=== PATIENT | female | born 1995 | race African-American/Black ===

== ENCOUNTER 2016-08-20 07:11 | Inpatient (IN) | payer MEDICAID, OTHER ==
[2016-08-20] VITALS (28 sets, daily range): BP systolic 97–128; BP diastolic 39–76; PULSE 78–93; RESP 6–18; TEMP 97.7–98.4
[~2016-08-20] VITALS: Ht 175.3 cm; Wt 104.8 kg
[2016-08-20] MEDS: LACTATED RINGER'S 1000 ML INJ 1,000 ML IV SCH ×2 (00:20→10:29)
[~2016-08-20 07:11] MED LIST: PRENTAB44
[2016-08-20] MEDS ORDERED: LACTATED RINGER'S 1000 ML INJ 1,000 ML IV PRN (07:48)
--- NOTE | 2016-08-20 07:48 | PD ---
HPI Chief Complaint loss of fluid Date Seen: Aug 20, 2016 Travel History International Travel<30 Days: No Contact w/Intl Traveler<30Days: No Known Affected Area: No History of Present Illness HPI Ms. Moore is a 21 yo F at 39 6/7 weeks (WILBERT 08/21/2016) who presents with complaint of loss of vaginal fluid suspicious for ROM. Patient states that she felt a large volume of clear fluid on her underwear and gown at ~0530 this morning so sought evaluation. Patient reports that since this time she has had intermittent tightening lower abdomen and constant back pain. Patient reports slight dysuria, and states that she had history of UTI earlier this which was treated. Patient otherwise denies symptoms; no chest pain, shortness of breath, calf pain, or headaches reported. No decreased movement reported. No vaginal bleeding reported. No US complications reported. Patient reports no complications; she is reportedly GBS negative. Patient receives care with Beverley Gant. Para: 0 : 1 History Past Medical History Medical History: Denies Significant Hx Obstetric History Obstetric History G1 Past Surgical History Surgical History: No Previous Surgery Family History Narrative Family History Father- HTN Social History Alcohol Use: No Tobacco Use: No Substance Abuse: No Allergies-Medications (Allergen,Severity, Reaction): Coded Allergies: No Known Allergies (Unverified , 08/16/16) Home Meds Reported Medications Multivit-Min W/Fe-FA ( and Iron)1 Tab Tab 06/13/16 Review of Systems General / Constitutional: No: Fever, Chills Cardiovascular: No: Chest Pain or Discomfort Respiratory: No: Short of Breath Gastrointestinal: No: Nausea, Vomiting Genitourinary: Dysuria ( ) Physical Exam BP 114/66 HR 83 RR 20 T 97.6 Narrative GENERAL: Well-nourished, well-developed patient. SKIN: Warm and dry. HEAD: Normocephalic and atraumatic. EYES: No scleral icterus. No injection or drainage. ENT: No nasal drainage noted. Mucous membranes pink. Airway patent. NECK: No lymphadenopathy or thyromegaly CARDIOVASCULAR: Regular rate and rhythm without murmurs; normal perfusion RESPIRATORY: CTAB, normal rate ABDOMEN/GI: Abdomen soft, non-tender, bowel sounds present, no rebound, no guarding Gravid EXTREMITIES: No cyanosis or edema. BACK: Nontender without obvious deformity. No CVA tenderness. NEUROLOGICAL: Awake and alert. Motor and sensory grossly within normal limits. Five out of 5 muscle strength in all muscle groups. Normal speech. GENITOURINARY: External Genitalia: intact and normal in appearance Cervix: Dilatation: 1-2 cm Effacement: 70% Station: -2 Presentation: V Membranes: ruptured (Amnisure) Uterine Contractions: irritability FHT's: Category: 1 -2 (<10 min periods of decreased variability) Baseline: 140 Reactive: Y Variability: Mod Decels: none Data Data Vital Signs Reviewed: Yes MDM Medical Record Reviewed: Yes Narrative Course / MDM 21 yo F at 39 6/7 weeks (WILBERT 08/21/2016) who presents with complaint of loss of vaginal fluid suspicious for ROM -ROM confirmed with Amnisure -Cervix 1-2/70%/-2 -Cat -1 rhythm with <10 min periods decreased variability -GBS- Plan -Will admit for labor -Will give Cytotec for cervical ripening -Will check UA -Will check CBC, blood typing -Epidural if desired -Will start IVF; place patient on clear fluids Cruz Walton MD R2 Aug 20, 2016 07:48
[2016-08-20] MEDS ORDERED: MINERAL OIL 10 ML VIAL TOPICAL PRN (08:00)
[2016-08-20] MEDS ORDERED: LIDOCAINE HCL 1% 50 ML VIAL INFIL PRN (08:00)
[2016-08-20] MEDS ORDERED: CITRIC ACID-SODIUM CITRATE LIQ 30 ML UDC PO SCH (08:00)
[2016-08-20] MEDS ORDERED: SODIUM CHLORID 0.9% 500 ML INJ 500 ML IV PRN (08:00)
[2016-08-20] MEDS ORDERED: OXYTOCIN 30 UNITS-500ML PREMIX 500 ML IV ONE (08:00)
[2016-08-20] MEDS ORDERED: LIDOCAINE HCL 1% 50 ML VIAL I-DERMAL PRN (08:00)
[2016-08-20] MEDS ORDERED: SODIUM CHLOR 0.9% 1000 ML INJ 1,000 ML IV PRN (08:08)
--- NOTE | 2016-08-20 08:23 | HHI.HP ---
History & Physical H&P OB ED Note (Detail) Patient Name: Olivia Moore Unit Number: [id number] Date of : 1995 Patient Status: Registered Emergency Room Attending Doctor: Raegan Diallo MD HPI HPI Chief Complaint loss of fluid Date Seen: Aug 20, 2016 Travel History International Travel<30 Days: No Contact w/Intl Traveler<30Days: No Known Affected Area: No History of Present Illness HPI Ms. Moore is a 21 yo F at 39 6/7 weeks (WILBERT 08/21/2016) who presents with complaint of loss of vaginal fluid suspicious for ROM. Patient states that she felt a large volume of clear fluid on her underwear and gown at ~0530 this morning so sought evaluation. Patient reports that since this time she has had intermittent tightening lower abdomen and constant back pain. Patient reports slight dysuria, and states that she had history of UTI earlier this which was treated. Patient otherwise denies symptoms; no chest pain, shortness of breath, calf pain, or headaches reported. No decreased movement reported. No vaginal bleeding reported. No US complications reported. Patient reports no complications; she is reportedly GBS negative. Patient receives care with Beverley Gant. Para: 0 : 1 History (Limited) History Past Medical History Medical History: Denies Significant Hx Obstetric History Obstetric History G1 Past Surgical History Surgical History: No Previous Surgery Family History Narrative Family History Father- HTN Social History Alcohol Use: No Tobacco Use: No Substance Abuse: No Allergies-Medications Allergies-Medications (Allergen,Severity, Reaction): Coded Allergies: No Known Allergies (Unverified , 08/16/16) Home Meds Reported Medications Multivit-Min W/Fe-FA ( and Iron)1 Tab Tab 06/13/16 ROS Review of Systems General / Constitutional: No: Fever, Chills Cardiovascular: No: Chest Pain or Discomfort Respiratory: No: Short of Breath Gastrointestinal: No: Nausea, Vomiting Genitourinary: Dysuria ( ) Physical Exam Physical Exam BP 114/66 HR 83 RR 20 T 97.6 Narrative GENERAL: Well-nourished, well-developed patient. SKIN: Warm and dry. HEAD: Normocephalic and atraumatic. EYES: No scleral icterus. No injection or drainage. ENT: No nasal drainage noted. Mucous membranes pink. Airway patent. NECK: No lymphadenopathy or thyromegaly CARDIOVASCULAR: Regular rate and rhythm without murmurs; normal perfusion RESPIRATORY: CTAB, normal rate ABDOMEN/GI: Abdomen soft, non-tender, bowel sounds present, no rebound, no guarding Gravid EXTREMITIES: No cyanosis or edema. BACK: Nontender without obvious deformity. No CVA tenderness. NEUROLOGICAL: Awake and alert. Motor and sensory grossly within normal limits. Five out of 5 muscle strength in all muscle groups. Normal speech. GENITOURINARY: External Genitalia: intact and normal in appearance Cervix: Dilatation: 1-2 cm Effacement: 70% Station: -2 Presentation: V Membranes: ruptured (Amnisure) Uterine Contractions: irritability FHT's: Category: 1 -2 (<10 min periods of decreased variability) Baseline: 140 Reactive: Y Variability: Mod Decels: none Data Data Data Vital Signs Reviewed: Yes MDM MDM Medical Record Reviewed: Yes Narrative Course / MDM 21 yo F at 39 6/7 weeks (WILBERT 08/21/2016) who presents with complaint of loss of vaginal fluid suspicious for ROM -ROM confirmed with Amnisure -Cervix 1-2/70%/-2 -Cat -1 rhythm with <10 min periods decreased variability -GBS- Plan -Will admit for labor -Will give Cytotec for cervical ripening -Will check UA -Will check CBC, blood typing -Epidural if desired -Will start IVF; place patient on clear fluids Cruz Walton MD R2 Aug 20, 2016 08:23
[2016-08-20] MEDS ORDERED: MISOPROSTOL 25 MCG SUPP VAGINAL ONE (08:30)
[2016-08-20 09:21] LABS: AUTOMATED NEUTROPHIL # 5.1 TH/MM3 (1.8-7.7); BASOPHIL % 0.5 % (0.0-2.0); EOSINOPHIL # 0.1 TH/MM3 (0-0.4); EOSINOPHIL % 0.8 % (0.0-4.0); HEMATOCRIT 29.4 % (35.0-46.0); LYMPH % 28.2 % (9.0-44.0); LYMPHOCYTE # 2.3 TH/MM3 (1.0-4.8); MEAN CELL VOLUME 62.7 FL (80.0-100.0); MEAN CORPUSCULAR HEMOGLOBIN 20.6 PG (27.0-34.0); MEAN CORPUSCULAR HGB CONC 32.8 % (32.0-36.0); MONO % 9.2 % (0.0-8.0); NEUT % 61.3 % (16.0-70.0); PLATELET COUNT 332 TH/MM3 (150-450); RED BLOOD COUNT 4.69 MIL/MM3 (4.00-5.30); RED CELL DISTRIBUTION WIDTH 17.5 % (11.6-17.2); WHITE BLOOD COUNT 8.2 TH/MM3 (4.0-11.0)
[2016-08-20 09:22] LABS: HEMO FLAGS AUTO DIFF
[2016-08-20 09:25] LABS: BLOOD, URINE NEG (NEG); GLUCOSE,URINE NEG (NEG); KETONE, URINE NEG (NEG); NITRITE,URINE NEG (NEG); SQUAMOUS EPITHELIAL CELL URINE 12 /hpf (0-5); URINE COLOR YELLOW (YELLW/STRAW)
[2016-08-20 09:27] LABS: COMMENT (UR) CULT NOT INDICATED; CULTURE IF INDICATED CULT NOT INDICATED
[2016-08-20 09:50] LABS: SCAN/DIFF AUTO DIFF CONFIRMED
[2016-08-20] MEDS ORDERED: LACTATED RINGER'S 1000 ML INJ 1,000 ML IV ONE (15:15)
[2016-08-20] MEDS: MISOPROSTOL 25 MCG SUPP VAGINAL SCH ×2 (17:52→22:07)
--- NOTE | 2016-08-20 19:43 | PD.LABORPN ---
Subjective Subjective Pt feeling well resting comfortably with 2nd cytotec in place. Objective Vital Signs Vital Signs Date Time Temp Pulse Resp B/P Pulse Ox O2 Delivery O2 Flow Rate FiO2 08/20/16 18:45 16 08/20/16 18:30 97.9 89 16 125/68 08/20/16 17:59 16 08/20/16 17:30 16 08/20/16 17:19 82 117/69 08/20/16 17:00 16 08/20/16 16:30 98.4 16 08/20/16 16:10 89 97/67 08/20/16 16:00 16 08/20/16 15:30 16 08/20/16 15:08 83 119/74 08/20/16 15:00 18 08/20/16 14:30 97.7 08/20/16 14:30 16 08/20/16 13:56 16 08/20/16 13:33 6 08/20/16 13:33 16 08/20/16 13:31 83 113/58 08/20/16 13:02 16 08/20/16 12:48 18 08/20/16 12:48 89 114/61 08/20/16 12:00 16 08/20/16 12:00 97.9 08/20/16 12:00 83 113/56 Objective Pelvic Exam: Cervix:2/50/-3 FHT's: Moderate variability, no decelerations, + accels; CAT I Assessment/Plan Assessment and Plan 21y/o G1Po at 39w6d who was admitted this morning with PROM since 08/20/16 at 515am. -has received cytotec times 2, first dose at 1015a, last dose at 553p -plan for cytotec again in 4 hours if no improvement in Rashid score, consider oxytocin if Rashid score improved -epidural when desired -discussed epidural in depth and what to expect -anticipate Sharon Mcmillan MD Aug 20, 2016 19:43
[2016-08-21] VITALS (88 sets, daily range): BP systolic 74–157; BP diastolic 48–117; PULSE 70–121; RESP 16–20; TEMP 97.7–99.6
[2016-08-21] MEDS ORDERED: fentaNYL 2MCG-BUPIV 0.125% INJ 100 ML ONE (03:44)
[2016-08-21] MEDS ORDERED: LIDOCAINE HCL 1.5% PF SOLN 20 ML AMP ONE ×2 (05:04→07:11)
[2016-08-21] MEDS ORDERED: BUPIVACAINE HCL PF 0.25% 10 ML VIAL ONE (07:11)
[2016-08-21] MEDS ORDERED: fentaNYL 2MCG-BUPIV 0.125% 100 ML EPIDURAL SCH (07:45)
[2016-08-21] MEDS ORDERED: DO NOT ADMINISTER ANTICOAGULANTS PRN (07:45)
[2016-08-21] MEDS ORDERED: NO SYSTEM NARCOTICS PRN (07:45)
[2016-08-21] MEDS ORDERED: ePHEDrine/NS 25 MG/5 ML SYR IV PRN (07:45)
--- NOTE | 2016-08-21 08:48 | PD.LABORPN ---
Subjective Subjective Ms. Moore reports that she is doing well overall; she feels pain with contractions despite epidural placement (at ~0400 08/21). Patient has not had complications since Pitocin started (at ~0230 08/21). Patient does not report other complaints at this time. Objective Vital Signs Vital Signs Date Time Temp Pulse Resp B/P Pulse Ox O2 Delivery O2 Flow Rate FiO2 08/21/16 08:30 105 112/61 08/21/16 08:15 20 08/21/16 08:00 90 123/64 08/21/16 07:45 86 105/58 08/21/16 07:45 20 08/21/16 07:30 96 119/63 08/21/16 07:15 91 127/72 08/21/16 07:15 99.6 20 08/21/16 07:10 100 08/21/16 07:05 92 08/21/16 07:00 94 08/21/16 07:00 97 122/68 08/21/16 06:45 92 112/60 08/21/16 06:45 89 08/21/16 06:40 85 08/21/16 06:35 83 08/21/16 06:31 85 109/52 08/21/16 06:30 85 08/21/16 06:25 85 08/21/16 06:20 82 08/21/16 06:15 81 08/21/16 06:15 82 107/63 08/21/16 06:10 81 08/21/16 06:05 87 08/21/16 06:01 101 128/76 08/21/16 06:00 82 08/21/16 05:55 87 08/21/16 05:50 86 08/21/16 05:46 80 123/48 08/21/16 05:45 79 08/21/16 05:40 82 08/21/16 05:35 83 08/21/16 05:30 86 08/21/16 05:30 84 122/69 08/21/16 05:25 83 08/21/16 05:20 88 08/21/16 05:15 83 111/67 08/21/16 05:15 81 08/21/16 05:10 81 08/21/16 05:05 77 08/21/16 05:00 97.9 08/21/16 05:00 77 121/75 08/21/16 05:00 82 08/21/16 04:55 78 112/62 08/21/16 04:55 77 08/21/16 04:50 74 115/61 08/21/16 04:50 78 08/21/16 04:45 70 08/21/16 04:45 80 122/58 08/21/16 04:40 87 08/21/16 04:40 93 118/72 08/21/16 04:35 83 113/61 08/21/16 04:35 81 08/21/16 04:30 86 08/21/16 04:30 82 120/65 08/21/16 04:25 81 114/51 08/21/16 04:25 81 08/21/16 04:20 86 08/21/16 04:20 84 123/66 08/21/16 04:15 106 122/53 08/21/16 04:15 100 08/21/16 04:10 105 08/21/16 04:10 100 112/57 08/21/16 04:05 90 133/71 08/21/16 04:05 87 08/21/16 04:01 97 148/62 08/21/16 04:00 92 08/21/16 03:57 106 127/69 08/21/16 03:30 83 139/72 08/21/16 03:00 18 08/21/16 03:00 76 124/71 08/21/16 02:31 80 125/71 08/21/16 02:30 97.7 18 08/21/16 02:29 81 127/75 Objective GENERAL: Well-nourished, well-developed patient. SKIN: Warm and dry. EYES: No scleral icterus. No injection or drainage. CARDIOVASCULAR: Regular rate and rhythm without murmurs; normal perfusion RESPIRATORY: CTAB, normal rate ABDOMEN/GI: Abdomen soft, non-tender, bowel sounds present, no rebound, no guarding Gravid EXTREMITIES: No cyanosis or edema. BACK: Nontender without obvious deformity. No CVA tenderness. NEUROLOGICAL: Awake and alert. Motor and sensory grossly within normal limits. Pelvic Exam: (Performed by nursing staff at 05 /) Cervix: Dilatation: 5 cm Effacement: 80 % Station: -1 Presentation: Vertex Membranes: Ruptured Uterine Contractions: Every 25 min FHT's: Category: 1 (generally reassuring, occasional periods of decreased variability with accelerations) Baseline: 130 Reactive: Y Variability: Moderate Decels: None Assessment/Plan Problem List: (1) premature rupture of membranes (PPROM) with onset of labor after 24 hours of rupture in third trimester, antepartum Assessment and Plan 21y/o G1Po at 40weeks who was admitted 08/20 with PROM since 08/20/16 at 515am. -has received cytotec x3, first dose at 1015a, last dose at 2200 08/20 -Pitocin started at 0230 08/21 due to favorable Rashid score -Epidural placed 0400 08/21 -Continue to monitor EFM -anticipate Cruz Walton MD R2 Aug 21, 2016 08:48
--- NOTE | 2016-08-21 12:52 | PD.OB.DELI ---
Delivery Date: Aug 21, 2016 Anesthesia: Epidural Episiotomy: None Vaginal Delivery: Normal Presentation: Occiput anterior Nuchal Cord: None Delayed cord clamping (45 sec): Yes : Female One Minute : 9 Five Minute : 9 Weight: 3475g Infant Care: Spontaneous crying Placenta: Spontaneous delivery Laceration: No lacerations Additional Information 21 y/o delivered vaginally with no complications. Delivery performed by Carlitos , supervised by Dr. Diallo. Mother and baby are doing well. (Stacie Urbina MD R1) Collaborating MD Comments Delivery was closely supervised and was performed without any undue complications (Raegan Diallo MD) Stacie Urbina MD R1 Aug 21, 2016 12:51 Raegan Diallo MD Aug 22, 2016 08:56
[2016-08-21] MEDS ORDERED: BENZOCAINE 20% TOPICAL SPRAY 60 ML CAN TOPICAL PRN (13:00)
[2016-08-21] MEDS ORDERED: WITCH HAZEL 50%/GLYCERIN 12.5% 40 PAD JAR TOPICAL PRN (13:00)
[2016-08-21] MEDS ORDERED: ACETAMINOPHEN 325 MG TAB PO PRN (13:00)
[2016-08-21] MEDS ORDERED: ZOLPIDEM TARTRATE 5 MG TAB PO PRN (13:00)
[2016-08-21] MEDS ORDERED: oxyCODONE/ACETAMINOPHEN 5 MG/325 MG TAB PO PRN (13:00)
[2016-08-21] MEDS ORDERED: DOCUSATE SODIUM 50 MG/SENNA 8.6 MG TAB PO PRN (13:00)
[2016-08-21] MEDS ORDERED: ALUMINUM/MAGNESIUM/SIMETH 30 ML CUP PO PRN (13:00)
[2016-08-21] MEDS ORDERED: SODIUM CHLORIDE 0.9% FLUSH 10 ML FLUSH IV FLUSH PRN (13:00)
[2016-08-21] MEDS ORDERED: ONDANSETRON ODT 4 MG TAB PO PRN (13:00)
[2016-08-21] MEDS: IBUPROFEN 600 MG TAB PO PRN (13:42)
[2016-08-21] MEDS ORDERED: MEASLES, MUMPS, RUBELLA VACCINE 0.5 ML VIAL SQ ONE (16:00)
[2016-08-21] MEDS ORDERED: DIPHTH/TETANUS/ACEL PERTUSSIS (BOOSTER) 0.5 ML VIAL/PFS IM ONE (16:00)
[2016-08-21] MEDS ORDERED: SODIUM CHLORIDE 0.9% FLUSH 10 ML FLUSH IV FLUSH SCH (21:00)
[2016-08-22] MEDS: IBUPROFEN 600 MG TAB PO PRN ×3 (02:59→19:57)
--- NOTE | 2016-08-22 07:22 | HHI.OB ---
Subjective Post Day: 1 Remarks AFVSS overnight. Doing well Decreased lochia - like a heavy period. No breast tenderness. She plans to breast feed. Appetite good. No nausea or vomiting. Positive flatus. No bowel movement. Ambulating well. Denies calf pain, shortness of breath, or cough. Otherwise, she is doing well this morning and has no other complaints. (Eko,Stacie U R1) Objective Vitals/I&O Vital Signs Date Time Temp Pulse Resp B/P Pulse Ox O2 Delivery O2 Flow Rate FiO2 08/21/16 19:50 98.0 102 18 120/73 08/21/16 15:20 98.2 92 16 124/78 08/21/16 14:00 101 126/70 08/21/16 13:46 102 120/64 08/21/16 13:30 107 08/21/16 13:25 105 120/81 08/21/16 13:20 18 08/21/16 13:20 108 119/64 08/21/16 13:15 108 123/66 08/21/16 13:11 104 116/59 08/21/16 13:05 96 157/117 08/21/16 12:57 98.8 20 08/21/16 12:55 105/76 08/21/16 12:50 113 81/60 08/21/16 12:46 106 74/52 08/21/16 11:36 20 08/21/16 11:25 118 130/79 08/21/16 11:20 108 128/67 08/21/16 11:15 108 20 131/75 08/21/16 11:10 127/95 08/21/16 11:05 108 131/77 08/21/16 11:00 113 119/59 08/21/16 10:45 20 08/21/16 10:40 117 08/21/16 10:40 121 134/58 08/21/16 10:36 120 144/54 08/21/16 10:30 120 136/62 08/21/16 10:01 20 08/21/16 10:00 113 135/66 08/21/16 09:45 120 123/79 08/21/16 09:42 20 08/21/16 09:30 111 124/69 08/21/16 09:15 110 123/60 08/21/16 09:00 105 121/72 08/21/16 08:53 98.4 20 08/21/16 08:45 109 109/57 08/21/16 08:30 105 112/61 08/21/16 08:15 20 08/21/16 08:00 90 123/64 08/21/16 07:45 86 105/58 08/21/16 07:45 20 08/21/16 07:30 96 119/63 Objective Remarks GENERAL: Well-nourished, well-developed patient. CARDIOVASCULAR: Regular rate and rhythm without murmurs, gallops, or rubs. RESPIRATORY: Breath sounds equal bilaterally. No accessory muscle use. ABDOMEN/GI: Abdomen soft, non-tender. Fundus: Firm, non-tender at umbilicus. GENITOURINARY: Light to moderate bleeding. EXTREMITIES: No cyanosis or edema, non-tender, without signs of DVT. Medications and IVs Current Medications Medications (Trade) Dose Ordered Sig/Kathleen Route Start Time Stop Time Status Last Admin (Cytotec Supp) 25 mcg Q4H VAGINAL 08/20/16 16:00 08/20/16 22:07 Miscellaneous Information No systemic narcotics to be given except... UNSCH PRN .XX 08/21/16 07:45 08/22/16 07:44 Miscellaneous Information DO NOT ADMINISTER ANY ANTICOAGUL... UNSCH PRN .XX 08/21/16 07:45 08/22/16 07:44 (fentaNYL 2MCG-BUPIV 0.125% INJ) 100 ml @ 0 mls/hr TITRATE EPIDURAL 08/21/16 07:45 (ePHEDrine/NS 25 MG/5 ML SYR) 10 mg UNSCH PRN IV 08/21/16 07:45 08/22/16 07:44 (NS Flush) 2 ml BID IV FLUSH 08/21/16 21:00 (NS Flush) 2 ml UNSCH PRN IV FLUSH 08/21/16 13:00 (Tylenol) 650 mg Q4H PRN PO 08/21/16 13:00 (Motrin) 600 mg Q6H PRN PO 08/21/16 13:00 08/22/16 02:59 (Percocet 5-325 Mg) 1 tab Q4H PRN PO 08/21/16 13:00 (Percocet 5-325 Mg) 2 tab Q4H PRN PO 08/21/16 13:00 (Americaine 20% Top Spr) 1 spray Q4H PRN TOPICAL 08/21/16 13:00 (Tucks Pads) 1 applic QID PRN TOPICAL 08/21/16 13:00 (Leanne-Colace) 2 tab Q12H PRN PO 08/21/16 13:00 (Ambien) 5 mg HS PRN PO 08/21/16 13:00 (Mag-Al Plus Susp Liq) 15 ml Q8H PRN PO 08/21/16 13:00 (Zofran Odt) 4 mg Q6H PRN PO 08/21/16 13:00 (Stacie Urbina MD R1) Assessment/Plan Assessment and Plan 21y/o PPD#1 s/p -Continue routine care -Motrin and Percocet PRN for pain -Pericolase PRN for constipation -Encouraged OOB. Advised pelvic rest for 6 wks -Will need a follow-up appointment within 6 wks -Re: ctrl - patient would like oral contraceptives Discussed with Dr. Diallo Discharge Planning Anticipate discharge tomorrow. (Stacie Urbina MD R1) Collaborating MD Comments Agree with continued management plans (Raegan Diallo MD) Stacie Urbina MD R1 Aug 22, 2016 07:22 Raegan Diallo MD Aug 22, 2016 09:01
[2016-08-22 08:00] VITALS: BP_SYST 114; BP_SYST 96; BP_DIAS 56; BP_DIAS 78; PULSE 80; RESP 14; RESP 16; TEMP 98.7
[2016-08-22 19:50] VITALS: BP 116/62; PULSE 89; RESP 18; TEMP 98.3
[2016-08-22] MEDS: oxyCODONE/ACETAMINOPHEN 5 MG/325 MG TAB PO PRN (19:58)
[2016-08-23] MEDS: IBUPROFEN 600 MG TAB PO PRN (03:33)
[2016-08-23] MEDS: oxyCODONE/ACETAMINOPHEN 5 MG/325 MG TAB PO PRN (03:34)
--- NOTE | 2016-08-23 07:18 | HHI.OB ---
Subjective Post Day: 2 Remarks AFVSS overnight. Doing well Decreased lochia - less than a period. She plans to breast feed. Appetite good. No nausea or vomiting. Positive flatus. Positive bowel movemen x2. Ambulating well. Denies calf pain, shortness of breath, or cough. Otherwise, she is doing well this morning and has no other complaints. Objective Vitals/I&O Vital Signs Date Time Temp Pulse Resp B/P Pulse Ox O2 Delivery O2 Flow Rate FiO2 08/22/16 19:50 89 18 116/62 08/22/16 19:50 98.3 08/22/16 08:00 114/78 08/22/16 08:00 14 08/22/16 08:00 98.7 80 16 96/56 Objective Remarks GENERAL: Well-nourished, well-developed patient. CARDIOVASCULAR: Regular rate and rhythm without murmurs, gallops, or rubs. RESPIRATORY: Breath sounds equal bilaterally. No accessory muscle use. ABDOMEN/GI: Abdomen soft, non-tender. Fundus: Firm, non-tender at umbilicus. GENITOURINARY: Light to moderate bleeding. EXTREMITIES: No cyanosis or edema, non-tender, without signs of DVT. Medications and IVs Current Medications Medications (Trade) Dose Ordered Sig/Kathleen Route Start Time Stop Time Status Last Admin Misoprostol 25 mcg 25 mcg Q4H VAGINAL 08/20/16 16:00 08/20/16 22:07 (fentaNYL 2MCG-BUPIV 0.125% INJ) 100 ml @ 0 mls/hr TITRATE EPIDURAL 08/21/16 07:45 (NS Flush) 2 ml BID IV FLUSH 08/21/16 21:00 (NS Flush) 2 ml UNSCH PRN IV FLUSH 08/21/16 13:00 (Tylenol) 650 mg Q4H PRN PO 08/21/16 13:00 (Motrin) 600 mg Q6H PRN PO 08/21/16 13:00 08/23/16 03:33 (Percocet 5-325 Mg) 1 tab Q4H PRN PO 08/21/16 13:00 08/23/16 03:34 (Percocet 5-325 Mg) 2 tab Q4H PRN PO 08/21/16 13:00 (Americaine 20% Top Spr) 1 spray Q4H PRN TOPICAL 08/21/16 13:00 (Tucks Pads) 1 applic QID PRN TOPICAL 08/21/16 13:00 (Leanne-Colace) 2 tab Q12H PRN PO 08/21/16 13:00 08/22/16 13:29 (Ambien) 5 mg HS PRN PO 08/21/16 13:00 (Mag-Al Plus Susp Liq) 15 ml Q8H PRN PO 08/21/16 13:00 (Zofran Odt) 4 mg Q6H PRN PO 08/21/16 13:00 Assessment/Plan Assessment and Plan 21y/o PPD#2 s/p -Continue routine care -Motrin and Percocet PRN for pain -Pericolase PRN for constipation -Encouraged OOB. Advised pelvic rest for 6 wks -Will need a follow-up appointment within 6 wks -Re: ctrl - patient would like oral contraceptives Discussed with Dr. Nunes Discharge Planning Anticipate discharge today. Stacie Urbina MD R1 Aug 23, 2016 07:18
[2016-08-23] MEDS ORDERED: IBUP-232 PO (07:20)
--- NOTE | 2016-08-23 07:25 | HHI.DCPOC ---
Discharge Care Plan Diagnosis: (1) Normal vaginal delivery Report Symptoms to Your Doctor -Temperate above 100.5 degrees -Redness, of incision or excessive or foul smelling drainage -Unusual pain or calf pain -Increased vaginal bleeding -Painful or difficulty urinating -Feelings of extreme sadness or anxiety after 2 weeks Goals to Promote Your Health * To prevent worsening of your condition and complications * To maintain your health at the optimal level Directions to Meet Your Goals Take your medications as prescribed Follow your dietary instruction Follow activity as directed Ensure plenty of rest for recovery Drink fluids for hydration Keep your appointments as scheduled Take your immunizations and boosters as scheduled If your symptoms worsen call your PCP, if no PCP go to Urgent Care Center or Emergency Room Smoking is Dangerous to Your Health. Avoid second hand smoke Call the 24-hour crisis hotline for domestic abuse at Stacie Urbina MD R1 Aug 23, 2016 07:24
[2016-08-23 08:00] VITALS: BP 106/61; PULSE 75; RESP 18; TEMP 97.8
== END 2016-08-23 13:51 | disposition home or self-care (01) | DRG 775 ==
LOC: HOBED 07:11 → H2EB 08:05 → H1EA 08-21 14:57
PROVIDERS: ADMIT Obstetrics & Gynecology; ATTEND Obstetrics & Gynecology
PROC: 10E0XZZ Delivery of Products of Conception, External Approach (ICD-10-PCS; principal; 2016-08-21)
PROC: 00HU33Z Insertion of Infusion Device into Spinal Canal, Percutaneous Approach (ICD-10-PCS; 2016-08-21)
PROC: 3E0R3CZ (ICD-10-PCS; 2016-08-21)
DX: O42.12 Full-term premature rupture of membranes, onset of labor more than 24 hours following rupture (principal); Z87.440 Personal history of urinary (tract) infections; Z37.0 Single live birth; Z3A.40 40 weeks gestation of pregnancy
CPT/HCPCS: 59025; 81001; 84112; 85025; 86900; 86901; 90715; 99285; J3010; J7120

== ENCOUNTER 2018-06-01 01:03 | Inpatient (IN) ==
[2018-06-01] MEDS ORDERED: Oxytocin 30 Units/500ml Premix 30 UNITS/500 ML BAG IV.SIG ONE (01:50)
[2018-06-01] MEDS ORDERED: Sodium Chlor 0.9% Inj 500 ML IV.SIG PRN (01:50)
[2018-06-01] MEDS ORDERED: Naloxone Inj 0.4 MG/ML Vial IV.PUSH PRN ×2 (01:50→10:49)
[2018-06-01] MEDS ORDERED: fentaNYL Citrate Inj 100 MCG/2 ML Ampul IV.PUSH PRN (01:50)
[2018-06-01] MEDS ORDERED: Sod Chloride 0.9% Inj 1,000 ML IV.CONT PRN (01:50)
--- NOTE | 2018-06-01 01:50 | ED ---
History of Present Illness Primary Care Physician: NOT REQUIRED Chief Complaint: Contractions History of Present Illness: 22-year-old at 39+ weeks presents complaining of contractions. Reports good movement ,denies rupture of membranes vaginal bleeding or leakage of fluid. care with Dr. Humphrey Giordano uneventful to date. 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 This includes certification that hospital inpatient services are reasonable and necessary and in the case of services not specified as inpatient-only under 42 CFR 419.22(n), that they are appropriately provided as inpatient services in accordance to with the 2-midnight benchmark under 43 CFR 412.3(e) Review of Systems All other systems reviewed negative except as stated in HPI PMFSH - History History Provided By: Patient - Medical History Medical History: Medical History (Last Updated 01/29/18 @ 22:01 by Brandon Arreguin MD) Anxiety Panic disorder [episodic paroxysmal anxiety] - Tobacco History Second Hand Smoke Exposure: No Smoking Status: Never smoker - Alcohol History How Often Do You Have a Drink Containing Alcohol: Never - Substance Use History Substance History: No History of Abuse - Travel History History of Recent Travel: No Medications and Allergies Allergies Allergy/AdvReac Type Severity Reaction Status Date / Time No Known Allergies Allergy Verified 06/01/18 01:19 Home Medications Medication Instructions Recorded Confirmed Type CitraNatal [place] (iron fum) 1 cap PO DAILY 03/22/18 03/22/18 History Exam Vital signs: Vital Signs 06/01/18 01:36 06/01/18 01:37 Temperature 97.7 F Pulse Rate 113 H Respiratory Rate 18 Blood Pressure 102/88 Intake & Output 05/31/18 05/31/18 06/01/18 06:59 18:59 06:59 Weight 103.873 kg - Constitutional mild distress - Routine HEENT Exam Head: Present: normocephalic ENT: Present: mucous membranes moist - Routine Neck Exam Present: supple - Routine Chest/Breast/Axilla Exam Chest wall: Absent: tenderness - Routine Respiratory Exam Absent: accessory muscle use - Routine Cardiovascular Exam Present: RRR - Routine Abdominal Exam Present: soft (Gravid heart rate category 1) - Routine Exam Comments: No lesions of the external genitalia cervical exam cervix is soft 3-4 cm dilated 80% effaced -2 station - Routine Extremities Exam Absent: cyanosis - Routine Neurological Exam Present: alert, oriented X3 Assessment and Plan - Diagnosis (1) Uterine contractions during Code(s): O62.2 - Other uterine inertia Status: Acute (2) 39 weeks gestation of Code(s): Z3A.39 - 39 weeks gestation of Status: Acute - Plan Admit early onset of labor Discharge Plan - Discharge Disposition Patient Disposition: ED Admit(ED Internal Use Only) - Discharge Condition Condition: Good - Physicians Team ED Provider: Toshia Jacques Primary Care Provider: NOT REQUIRED,
--- NOTE | 2018-06-01 01:55 | P.HPOB ---
Patient Name: Olivia Moore Date of : 89 Patient Status: Inpatient Attending Provider: Toshia Jacques Date: 06/01/18 01:46 Initialization Date: 06/01/18 01:46 History of Present Illness Primary Care Physician: NOT REQUIRED Chief Complaint: Contractions History of Present Illness: 22-year-old at 39+ weeks presents complaining of contractions. Reports good movement ,denies rupture of membranes vaginal bleeding or leakage of fluid. care with Dr. Humphrey Giordano uneventful to date. GBS negative Past OB history x1 pelvis tested to 7 pounds 11 ounces without complication Past [employer] history denies Past medical history anxiety Allergies denies Weeks Gestation:: 39 Para: 1 : 2 - Inpatient Certification I certify that the inpatient services were ordered in accordance with Medicare regulations governing the order. This includes certification that hospital inpatient services are reasonable and necessary and in the case of services not specified as inpatient-only under 42 CFR 419.22(n), that they are appropriately provided as inpatient services in accordance to with the 2-midnight benchmark under 43 CFR 412.3(e) Review of Systems All other systems reviewed negative except as stated in HPI PMFSH - History History Provided By: Patient - Medical History Medical History: Medical History (Last Updated 01/29/18 @ 22:01 by Brandon Arreguin MD) Anxiety Panic disorder [episodic paroxysmal anxiety] - Tobacco History Second Hand Smoke Exposure: No Smoking Status: Never smoker - Alcohol History How Often Do You Have a Drink Containing Alcohol: Never - Substance Use History Substance History: No History of Abuse - Travel History History of Recent Travel: No Medications and Allergies Allergies Allergy/AdvReac Type Severity Reaction Status Date / Time No Known Allergies Allergy Verified 06/01/18 01:19 Home Medications Medication Instructions Recorded Confirmed Type CitraNatal Mcintyre (iron fum) 1 cap PO DAILY 03/22/18 03/22/18 History Exam Vital signs: Vital Signs 06/01/18 01:36 06/01/18 01:37 Temperature 97.7 F Pulse Rate 113 H Respiratory Rate 18 Blood Pressure 102/88 Intake & Output 05/31/18 05/31/18 06/01/18 06:59 18:59 06:59 Weight 103.873 kg - Constitutional mild distress - Routine HEENT Exam Head: Present: normocephalic ENT: Present: mucous membranes moist - Routine Neck Exam Present: supple - Routine Chest/Breast/Axilla Exam Chest wall: Absent: tenderness - Routine Respiratory Exam Absent: accessory muscle use - Routine Cardiovascular Exam Present: RRR - Routine Abdominal Exam Present: soft (Gravid heart rate category 1) - Routine Exam Comments: No lesions of the external genitalia cervical exam cervix is soft 3-4 cm dilated 80% effaced -2 station - Routine Extremities Exam Absent: cyanosis - Routine Neurological Exam Present: alert, oriented X3 Assessment and Plan - Diagnosis (1) Uterine contractions during Code(s): O62.2 - Other uterine inertia Status: Acute (2) 39 weeks gestation of Code(s): Z3A.39 - 39 weeks gestation of Status: Acute - Plan Admit early onset of labor
[2018-06-01] MEDS ORDERED: Citric Acid/Sodium Citrate Liq 30 ML UDC PO SCH (02:00)
[2018-06-01] MEDS: fentaNYL Citrate Inj 100 MCG/2 ML Ampul IV.PUSH PRN ×2 (02:36→03:44)
[2018-06-01 02:49] LABS: Baso % (Auto) 0.2 % (0.0-2.0); Eos # (Auto) 0.1 th/mm3 (0.0-0.4); Eos % (Auto) 0.9 % (0.0-4.0); Hematocrit 29.1 % (35.0-46.0); Hemoglobin 9.7 gm/dL (11.6-15.3); Lymph # (Auto) 2.3 th/mm3 (1.0-4.8); Lymph % (Auto) 29.2 % (9.0-44.0); Mean Corpuscular HGB Conc 33.3 % (32.0-36.0); Mean Corpuscular Hemoglobin 21.3 pg (27.0-34.0); Mean Corpuscular Volume 64.1 fL (80.0-100.0); Mean Platelet Volume 8.7 fL (7.0-11.0); Mono # (Auto) 0.7 th/mm3 (0.0-0.9); Mono % (Auto) 9.2 % (0.0-8.0); Neut # (Auto) 4.7 th/mm3 (1.8-7.7); Neut % (Auto) 60.5 % (16.0-70.0); Platelet Count 280 th/mm3 (150-450); Red Blood Count 4.55 mil/mm3 (4.00-5.30); Red Cell Distribution Width 19.6 % (11.6-17.2); White Blood Count 7.8 th/mm3 (4.0-11.0)
[2018-06-01 03:14] LABS: Bacteria,Urine Rare /hpf; Bilirubin,Urine Negative (Negative); Clarity,Urine Cloudy (Clear); Color,Urine Yellow (Yellw/Straw); Glucose,Urine (UA) Negative (Negative); Leukocyte Esterase,Urine Large (Negative); Mucus,Urine Few /lpf (Occasional); Nitrite,Urine Negative (Negative); Specific Gravity,Urine 1.018 (1.002-1.035); Squamous Epithelial Cell,Urine 5 /hpf (0-5); Trichomonas,Urine Rare /hpf
[2018-06-01] MEDS ORDERED: fentaNYL 2MCG-Bupiv 0.125% Epi 150 ML EPIDURAL ONE (03:47)
[2018-06-01] MEDS ORDERED: fentaNYL Citrate Inj 100 MCG/2 ML Ampul EPIDURAL ONE (04:27)
[2018-06-01] MEDS ORDERED: fentaNYL 2MCG-Bupiv 0.125% Epi 150 ML EPIDURAL PRN (04:27)
[2018-06-01] MEDS ORDERED: Zolpidem Tartrate 5 MG Tablet PO PRN (10:49)
[2018-06-01] MEDS ORDERED: Acetaminophen 325 MG Tablet PO PRN (10:49)
[2018-06-01] MEDS ORDERED: Oxytocin 30 Units/500ml Premix 30 UNITS/500 ML BAG IV.CONT PRN (10:49)
[2018-06-01] MEDS ORDERED: Bisacodyl 10 MG Supp RECTAL PRN (10:49)
--- NOTE | 2018-06-01 11:00 | P.OBDELI ---
Weeks Gestation: 39 Patient Started Active Labor: Yes Active Labor Start Date: 06/01/18 Medical Induction of Labor: No Artificial Rupture of Membrane: No Anesthesia: Epidural Presentation: Occiput anterior Nuchal Cord: None Delayed Cord Clamping (45 sec): Yes Placenta: Spontaneous delivery, Cord pH Laceration: Episiotomy, 2 deg Repair: Chromic running Infant Male A Infant Delivery Date: 06/01/18 Weight: 3.47 kg score (1 min): 8 score (5 min): 9
[2018-06-01] MEDS: Witch Hazel 50%/Glyderin 12.5% 40 Pad Jar RECTAL PRN (11:24)
[2018-06-01] MEDS: Benzocaine 20% Top Spray 60 ML Can TOPICAL PRN (11:26)
[2018-06-01] MEDS ORDERED: Measles/Mumps/Rubella Vaccine Inj 0.5 ML Vial SQ ONE (16:00)
[2018-06-01] MEDS ORDERED: Diphtheria/Tetanus/Pertussis Vaccine Inj 0.5 ML Syringe IM ONE (16:00)
[2018-06-01] MEDS: Senna/Docusate Sodium 8.6/50 MG Tablet PO SCH (21:54)
--- NOTE | 2018-06-02 07:30 | P.PNOB ---
Subjective Post day: 1 Interval history: Patient is a 22-year-old delivered at 39/5 weeks. Patient is day 1 after . Patient's pain is well-controlled. Patient reports eating and drinking without any nausea or vomiting. Patient reports moderate bleeding. Patient has passed gas but no bowel movements. Patient is walking without lower extremity pain or shortness of breath. Patient reports desire for contraception and breast-feeding. Objective Vital Signs/I&O: Vital Signs 06/01/18 07:40 06/01/18 07:55 06/01/18 08:15 Temperature Pulse Rate 86 83 92 H Respiratory Rate 19 Blood Pressure 92/48 L 109/77 06/01/18 08:25 06/01/18 08:40 06/01/18 08:41 Temperature 98.2 F Pulse Rate 88 91 H Respiratory Rate 18 Blood Pressure 123/70 110/68 06/01/18 08:55 06/01/18 09:10 06/01/18 09:57 Temperature Pulse Rate 89 101 H 80 Respiratory Rate 18 Blood Pressure 101/78 115/76 103/45 L 06/01/18 11:00 06/01/18 11:32 06/01/18 11:36 Temperature 98.5 F Pulse Rate 85 Respiratory Rate 17 18 Blood Pressure 111/51 L 06/01/18 11:45 06/01/18 12:32 06/01/18 12:51 Temperature Pulse Rate 70 79 Respiratory Rate 16 Blood Pressure 105/66 102/58 L 06/01/18 13:00 06/01/18 13:15 06/01/18 13:16 Temperature Pulse Rate 69 69 Respiratory Rate 18 Blood Pressure 106/56 L 105/59 L 06/01/18 15:00 06/01/18 20:10 Temperature 98.4 F 98.6 F Pulse Rate 79 74 Respiratory Rate 20 18 Blood Pressure 106/64 100/58 L Result Diagrams: 06/01/18 02:10 Objective Remarks: GENERAL: Well-nourished, well-developed patient. CARDIOVASCULAR: Regular rate and rhythm without murmurs, gallops, or rubs. RESPIRATORY: Breath sounds equal bilaterally. No accessory muscle use. ABDOMEN/GI: Abdomen soft, non-tender. Fundus: Firm, non-tender at umbilicus. GENITOURINARY: Light to moderate bleeding. EXTREMITIES: No cyanosis or edema, non-tender, without signs of DVT. Medications and IVs: Active Medications Acetaminophen (Tylenol) 650 mg PO Q4H PRN PRN Reason: PAIN SCALE 1 TO 2 Al Hydroxide/Mg Hydroxide (Milk Of Magnesia Liq) 30 ml PO Q12H PRN PRN Reason: Mild Constipation Benzocaine (Americaine 20% Top [place]) 1 spray TOPICAL Q4H PRN PRN Reason: For Perineum Discomfort Last Admin: 06/01/18 11:26 Dose: 1 spray Bisacodyl (Dulcolax Supp) 10 mg RECTAL DAILY PRN PRN Reason: SEVERE CONSITIPATION Fentanyl Citrate (Fentanyl Inj) 50 mcg IV.PUSH Q1H PRN PRN Reason: Pain Scale 3 - 5 Fentanyl Citrate (Fentanyl Inj) 100 mcg IV.PUSH Q1H PRN PRN Reason: PAIN SCALE 6 TO 10 Last Admin: 06/01/18 03:44 Dose: 100 mcg Lactated Ringer's (Lr 1000 Ml Inj) 1,000 mls @ 3,000 mls/hr IV.SIG UNSCH PRN PRN Reason: compromise or epidural Last Infusion: 06/01/18 06:03 Dose: Infused Lactated Ringer's (Lr 1000 Ml Inj) 1,000 mls @ 125 mls/hr IV.CONT .Q8H [place] Last Admin: 06/02/18 03:23 Dose: Not Given Sodium Chloride (Ns Inj) 1,000 mls @ 100 mls/hr IV.CONT .Q10H PRN PRN Reason: SEE LABEL COMMENTS Oxytocin (Pitocin 30 Units/Ns 500 Ml Premix) 30 units in 500 mls @ 100 mls/hr IV.CONT UNSCH PRN PRN Reason: Heavy bleeding Ibuprofen (Motrin) 800 mg PO Q8H PRN PRN Reason: For Cramping Last Admin: 06/02/18 03:12 Dose: 800 mg Lactulose (Lactulose Liq) 30 ml PO DAILY PRN PRN Reason: SEVERE CONSITIPATION Naloxone HCl (Narcan Inj) 0.1 mg IV.PUSH Q2M PRN PRN Reason: for opiate reversal Naloxone HCl (Narcan Inj) 0.1 mg IV.PUSH Q2M PRN PRN Reason: for opiate reversal Ondansetron HCl (Zofran Inj) 4 mg IV.PUSH Q6H PRN PRN Reason: NAUSEA OR VOMITING Last Admin: 06/01/18 02:36 Dose: 4 mg Ondansetron HCl (Zofran Odt) 4 mg PO Q6H PRN PRN Reason: NAUSEA OR VOMITING Oxycodone/Acetaminophen (Percocet 5/325 Mg) 1 tab PO Q4H PRN PRN Reason: ABDOMINAL CRAMPING Last Admin: 06/02/18 03:11 Dose: 1 tab Senna/Docusate Sodium (Leanne-Colace) 1 tab PO BID [facility] Last Admin: 06/01/18 21:54 Dose: 1 tab Sennosides (Senokot) 17.2 mg PO Q12H PRN PRN Reason: Moderate Constipation Sodium Chloride (Ns Flush) 2 ml IV.FLUSH BID [facility] Last Admin: 06/01/18 21:55 Dose: 2 ml Sodium Chloride (Ns Flush) 2 ml IV.FLUSH PRN PRN PRN Reason: FLUSH AFTER USING IV ACCESS Witch Robbin/Glycerin (Tucks Pads) 1 applicatio RECTAL QID PRN PRN Reason: HEMORRHOIDS Last Admin: 06/01/18 11:24 Dose: 1 applicatio Zolpidem Tartrate (Ambien) 5 mg PO HS PRN PRN Reason: SLEEP Assessment and Plan - Plan Patient is a 22-year-old delivered at 39/5 weeks. Patient is day 1 after . Patient was counseled to do 6 weeks of pelvic rest. Patient was counseled to follow up in 6 weeks. Patient requested follow-up and contraception. --AF VSS --Continue routine care --Motrin and Percocet, witch robbin and ice to perineum when necessary for pain --Encourage OOB --Pelvic rest for 6 weeks will need follow-up appointment at that time. --Contraception: no decision at this time, considering tubal --Anticipate discharge tomorrow [facility] OB hospitalist
[2018-06-02] MEDS: Senna/Docusate Sodium 8.6/50 MG Tablet PO SCH ×2 (08:31→22:06)
[2018-06-02 20:10] VITALS: RESP 18
--- NOTE | 2018-06-03 08:07 | P.PNOB ---
Subjective Post day: 2 Interval history: Patient is a 22-year-old delivered at 39/5 weeks. Patient is day 2 after . Patient's pain is well-controlled. Patient reports eating and drinking without any nausea or vomiting. Patient reports moderate bleeding. Patient has passed gas . Patient is walking without lower extremity pain or shortness of breath. Patient reports desire for contraception and breast- feeding. Objective Vital Signs/I&O: Vital Signs 06/02/18 20:00 Temperature 97.7 F Pulse Rate 77 Respiratory Rate 18 Blood Pressure 101/69 Result Diagrams: 06/01/18 02:10 Objective Remarks: GENERAL: Well-nourished, well-developed patient. CARDIOVASCULAR: Regular rate and rhythm without murmurs, gallops, or rubs. RESPIRATORY: Breath sounds equal bilaterally. No accessory muscle use. ABDOMEN/GI: Abdomen soft, non-tender. Fundus: Firm, non-tender at umbilicus. GENITOURINARY: Light to moderate bleeding. EXTREMITIES: No cyanosis or edema, non-tender, without signs of DVT. Medications and IVs: Active Medications Acetaminophen (Tylenol) 650 mg PO Q4H PRN PRN Reason: PAIN SCALE 1 TO 2 Al Hydroxide/Mg Hydroxide (Milk Of Diogenes Liloraine) 30 ml PO Q12H PRN PRN Reason: Mild Constipation Benzocaine (Americaine 20% Top [place]) 1 spray TOPICAL Q4H PRN PRN Reason: For Perineum Discomfort Last Admin: 06/01/18 11:26 Dose: 1 spray Bisacodyl (Dulcolax Supp) 10 mg RECTAL DAILY PRN PRN Reason: SEVERE CONSITIPATION Fentanyl Citrate (Fentanyl Inj) 50 mcg IV.PUSH Q1H PRN PRN Reason: Pain Scale 3 - 5 Fentanyl Citrate (Fentanyl Inj) 100 mcg IV.PUSH Q1H PRN PRN Reason: PAIN SCALE 6 TO 10 Last Admin: 06/01/18 03:44 Dose: 100 mcg Lactated Ringer's (Lr 1000 Ml Inj) 1,000 mls @ 3,000 mls/hr IV.SIG UNSCH PRN PRN Reason: compromise or epidural Last Infusion: 06/01/18 06:03 Dose: Infused Lactated Ringer's (Lr 1000 Ml Inj) 1,000 mls @ 125 mls/hr IV.CONT .Q8H [place] Last Admin: 06/02/18 03:23 Dose: Not Given Sodium Chloride (Ns Inj) 1,000 mls @ 100 mls/hr IV.CONT .Q10H PRN PRN Reason: SEE LABEL COMMENTS Oxytocin (Pitocin 30 Units/Ns 500 Ml Premix) 30 units in 500 mls @ 100 mls/hr IV.CONT UNSCH PRN PRN Reason: Heavy bleeding Ibuprofen (Motrin) 800 mg PO Q8H PRN PRN Reason: For Cramping Last Admin: 06/03/18 02:12 Dose: 800 mg Lactulose (Lactulose Liq) 30 ml PO DAILY PRN PRN Reason: SEVERE CONSITIPATION Naloxone HCl (Narcan Inj) 0.1 mg IV.PUSH Q2M PRN PRN Reason: for opiate reversal Naloxone HCl (Narcan Inj) 0.1 mg IV.PUSH Q2M PRN PRN Reason: for opiate reversal Ondansetron HCl (Zofran Inj) 4 mg IV.PUSH Q6H PRN PRN Reason: NAUSEA OR VOMITING Last Admin: 06/01/18 02:36 Dose: 4 mg Ondansetron HCl (Zofran Odt) 4 mg PO Q6H PRN PRN Reason: NAUSEA OR VOMITING Oxycodone/Acetaminophen (Percocet 5/325 Mg) 1 tab PO Q4H PRN PRN Reason: ABDOMINAL CRAMPING Last Admin: 06/03/18 02:12 Dose: 1 tab Senna/Docusate Sodium (Leanne-Colace) 1 tab PO BID [facility] Last Admin: 06/02/18 22:06 Dose: 1 tab Sennosides (Senokot) 17.2 mg PO Q12H PRN PRN Reason: Moderate Constipation Sodium Chloride (Ns Flush) 2 ml IV.FLUSH BID [facility] Last Admin: 06/03/18 01:58 Dose: Not Given Sodium Chloride (Ns Flush) 2 ml IV.FLUSH PRN PRN PRN Reason: FLUSH AFTER USING IV ACCESS Witch Robbin/Glycerin (Tucks Pads) 1 applicatio RECTAL QID PRN PRN Reason: HEMORRHOIDS Last Admin: 06/01/18 11:24 Dose: 1 applicatio Zolpidem Tartrate (Ambien) 5 mg PO HS PRN PRN Reason: SLEEP Assessment and Plan - Plan Patient is a 22-year-old delivered at 39/5 weeks. Patient is day 2 after . Patient was counseled to do 6 weeks of pelvic rest. Patient was counseled to follow up in 6 weeks. Patient requested follow-up and contraception. --AF VSS --Continue routine care --Motrin and Percocet, witch robbin and ice to perineum when necessary for pain --Encourage OOB --Pelvic rest for 6 weeks will need follow-up appointment at that time. --Contraception: no decision at this time, considering tubal at a later time --Anticipate discharge today [facility] hospitalist - Attending Attestation The exam, history, and the medical decision-making described in the above note were completed with the assistance of the resident physician. I reviewed and agree with the findings presented. I attest that I had a [id number] encounter with the patient on the same day, and personally performed and documented my assessment and findings in the medical record. Pt seen and examined. Doing well. Home today.
[2018-06-03 09:13] VITALS: BP 94/55; PULSE 74; TEMP 98.2
[2018-06-03] MEDS: Senna/Docusate Sodium 8.6/50 MG Tablet PO SCH (10:53)
[2018-06-03] MEDS: Witch Hazel 50%/Glyderin 12.5% 40 Pad Jar RECTAL PRN (12:31)
[2018-06-03] MEDS: Benzocaine 20% Top Spray 60 ML Can TOPICAL PRN (12:31)
== END 2018-06-03 13:36 | disposition home or self-care (01) | DRG 807 ==
LOC: HOBED 01:03 → H2E 01:39 → H1EA 14:41
PROVIDERS: ADMIT Obstetrics & Gynecology; ATTEND Obstetrics & Gynecology
CPT/HCPCS: 59025; 81001; 85025; 86900; 86901; 87086; 99285; J2405; J2590; J3010; J7120